=== PATIENT | male | born 1995 | race Two or more races ===

== ENCOUNTER 2017-03-13 17:37 | Emergency (ER) | payer MEDICAID, OTHER ==
[~2017-03-13] VITALS: Ht 180.3 cm; Wt 96.2 kg
[2017-03-13 18:36] VITALS: BP 128/73
== END 2017-03-13 19:47 | disposition home or self-care (01) ==
LOC: ER 17:59
DX: Z77.098 Contact with and (suspected) exposure to other hazardous, chiefly nonmedicinal, chemicals (principal)

== ENCOUNTER 2017-06-03 02:58 | Emergency (ER) | payer MEDICAID, OTHER ==
[~2017-06-03] VITALS: Ht 180.3 cm; Wt 97.5 kg
[2017-06-03 03:26] VITALS: BP 116/76
== END 2017-06-03 04:22 | disposition left against medical advice (07) ==
LOC: ER 03:02
DX: F41.9 Anxiety disorder, unspecified (principal); Z53.21 Procedure and treatment not carried out due to patient leaving prior to being seen by health care provider

== ENCOUNTER 2019-03-10 17:50 | Emergency (ER) | payer BC, MEDICAID ==
[~2019-03-10] VITALS: Ht 180.3 cm; Wt 109.8 kg
[2019-03-10 18:29] LABS: Basophils # (auto) 0 uL; Basophils % (auto) 0.3 % (0.0-2.0); Eosinophils # (auto) 0.1 uL; Eosinophils % (auto) 1.6 % (0.0-7.0); Hematocrit 42.9 % (41.0-53.0); Hemoglobin 15.1 g/dL (13.5-17.5); Lymphocytes # (auto) 2.8 uL; Lymphocytes % (auto) 35.8 % (10.0-50.0); Mean Corpuscular Hemoglobin 31.5 pg (28.0-32.0); Mean Corpuscular Hgb Conc. 35.2 g/dL (32.0-36.0); Mean Corpuscular Volume 89.5 fL (80.0-100.0); Monocytes # (auto) 0.5 uL; Monocytes % (auto) 6.8 % (0.0-12.0); Neutrophils # (auto) 4.3 uL; Neutrophils % (auto) 55.5 % (37.0-80.0); Nucleated Red Blood Cells % 0.1 %; Platelet Count (auto) 221 10^3/uL (140-450); Red Blood Cells 4.79 10^6/uL (4.5-5.90); Red Cell Distribution Width 13.7 % (11.8-14.3); White Blood Cell 7.8 10^3/uL (4.4-10.8)
[2019-03-10] MEDS ORDERED: ASPirin 81 mg TAB PO ONE (18:30)
[2019-03-10 18:49] LABS: INR 0.93 (0.9-1.15); Partial Thromboplastin Time 26.8 sec (23.64-32.05)
[2019-03-10 19:02] LABS: Albumin 3.9 g/dL (3.4-5.0); Anion Gap 7 (5-15); BUN/Creatinine Ratio 17.6; Blood Urea Nitrogen 18 mg/dL (7-18); Calcium 8.8 mg/dL (8.5-10.1); Carbon Dioxide 28 mmol/L (21-32); Chloride 107 mmol/L (98-107); GFR African American 115 mL/min; GFR Non-African American 95 mL/min; Glucose 94 mg/dL (74-106); Potassium 3.6 mmol/L (3.5-5.1); Sodium 142 mmol/L (136-145)
[2019-03-10 19:07] LABS: Alanine Aminotransferase 43 U/L (16-61); Alkaline Phosphatase 81 U/L (45-117); Aspartate Aminotransferase 21 U/L (15-37); Bilirubin, Total 0.5 mg/dL (0.2-1.0); Total Protein 7.7 g/dL (6.4-8.2)
[2019-03-10 19:55] LABS: Alcohol, Urine < 3.0 mg/dL (0-5); Amphetamine Screen, Urine NEGATIVE (NEGATIVE); Barbiturate Scree,Urine NEGATIVE (NEGATIVE); Benzodiazephine Screen, Urine NEGATIVE (NEGATIVE); Cannabinoid Screen, Urine NEGATIVE (NEGATIVE); Cocaine Screen, Urine NEGATIVE (NEGATIVE); Opiate Scree,Urine NEGATIVE (NEGATIVE); Phencyclidine Screen, Urine NEGATIVE (NEGATIVE)
[2019-03-10] MEDS ORDERED: IOHEXOL 350 MG/ML 100ML IJ ONE (22:45)
[2019-03-10] MEDS ORDERED: KETOROLAC TROMETH 15 mg/ml 1ML VL IV ONE (23:00)
[2019-03-10 23:05] VITALS: BP 126/77
== END 2019-03-10 23:26 | disposition home or self-care (01) ==
LOC: ER 17:50
DX: R07.89 Other chest pain (principal)
CPT/HCPCS: 36415; 71045; 71275; 80053; 80307; 83735; 84484; 85025; 85379; 85610; 85730; 93005; 94761; 96374; 99284; J1885; Q9967

== ENCOUNTER 2019-06-25 20:30 | Emergency (ER) | payer BC, OTHER ==
[~2019-06-25] VITALS: Ht 180.3 cm; Wt 108.9 kg
[2019-06-25 22:30] LABS: Hepatitis B Surface Antibody Positive
[2019-06-25 22:51] LABS: Hepatitis B Surface Antigen Negative (Negative)
[2019-06-25 23:37] VITALS: BP 128/85
== END 2019-06-26 00:07 | disposition home or self-care (01) ==
LOC: ER 20:37
DX: S61.531A Puncture wound without foreign body of right wrist, initial encounter (principal); W46.0XXA Contact with hypodermic needle, initial encounter; Y93.89 Activity, other specified; Y92.89 Other specified places as the place of occurrence of the external cause; Y99.8 Other external cause status
CPT/HCPCS: 36415; 86703; 86706; 86803; 87340

== ENCOUNTER 2021-08-29 08:16 | Emergency (ER) | payer SELFPAY ==
[~2021-08-29] VITALS: Ht 180.3 cm; Wt 109.8 kg
[2021-08-29 09:03] VITALS: BP 157/85
== END 2021-08-29 09:16 | disposition home or self-care (01) ==
LOC: ER 08:16
DX: R51.9 Headache, unspecified (principal)
CPT/HCPCS: 70450